=== PATIENT | female | born 1965 | race Caucasian/White ===

== ENCOUNTER → 2016-08-12 | Outpatient (CLI) | payer BC | END | disposition home or self-care (01) | LOC: RAD.S 07:41 | DX: Z12.31 Encounter for screening mammogram for malignant neoplasm of breast (principal) ==

== ENCOUNTER 2016-09-21 07:41 | Day surgery (SDC) | payer BC ==
[~2016-09-21] VITALS: Ht 167.6 cm; Wt 88.3 kg
--- NOTE | 2016-10-05 11:04 | OR ---
ADMIT: 09/21/2016 RM/LOC: [facility] MR#: [id number] [address] [address] [address] Operative/Delivery Room Report SEX: F AGE: 51 : 1965 SURGERY DATE: 09/21/2016 SURGEON: Chino Holliday MD PROCEDURE: Complete colonoscopy with 30 cm polypectomy x1, hepatic flexure polypectomy x2, 70 cm polypectomy x2 and 40 cm polypectomy x1. PREOPERATIVE DIAGNOSIS: Screening colonoscopy. POSTOPERATIVE DIAGNOSIS: Colon polyps. COMPLICATION: None immediate. INDICATION FOR PROCEDURE: She is due for screening colonoscopy. She is not having any symptoms, therefore, I am proceeding with screening colonoscopy. DESCRIPTION OF PROCEDURE: After the patient was informed of the risk, benefits, and alternatives of the procedure, informed consent was obtained. She was taken back to GI lab and placed left lateral decubitus position. Sedation was provided by the [employer]. Once appropriately sedated, rectal exam revealed good sphincter tone without palpable masses or lesions. Video colonoscope was introduced per rectum, passed to the cecum with difficulty. Gentle abdominal pressure was used, image 2/8 does reveal the cecal areas confirmed with ballotment and usual landmarks. Scope was then slowly removed with visualization of the remainder of the colonic mucosa. Prep was adequate. There were no other abnormalities noted other than two polyps approximately 4 mm in size as seen in image 3/8 at the hepatic flexure. These were removed in its entirety with cold biopsy forceps. The scope continued to be withdrawn. There was also two polyps at approximately 70 cm as seen in image 4/8, which were removed inentirety with cold biopsy forceps. The scope continued to be withdrawn and there was one polyp at 40 cm, approximately 4 mm in size, was removed with cold biopsy forceps in its entirety. The scope continued to be withdrawn, at approximately 30 cm as seen in image 05/01, there was an approximately 3 mm ADMIT: 09/21/2016 RM/LOC: [facility] MR#: [id number] [address] [place] [address] Operative/Delivery Room Report SEX: F AGE: 51 : 1965 polyp which was removed in its entirety with cold biopsy forceps. All polyps were significantly less than 1 cm and removed in its entirety with cold biopsy forceps. There were no other abnormalities noted. Once in the rectal vault, the scope was retroflexed, revealing a normal- appearing rectoanal junction as revealed in image 5, 6, and 10/29. Scope was straightened and procedure was terminated, tolerated without any immediate complications, transferred to recovery room in stable condition. PLAN: She will follow up with Dr. Wiley as needed. I recommend repeat colonoscopy pending pathology. Chino Holliday MD/ malick JOB #: [id number] CC: Chino Holliday, Attending Physician Arturo Wiley, Family Physician Arturo Wiley MD
== END 2016-09-21 12:30 | disposition home or self-care (01) ==
LOC: SSS 07:41
PROC: 0DBL8ZX Excision of Transverse Colon, Via Natural or Artificial Opening Endoscopic, Diagnostic (ICD-10-PCS; principal; 2016-09-21)
PROC: 0DBE8ZX Excision of Large Intestine, Via Natural or Artificial Opening Endoscopic, Diagnostic (ICD-10-PCS; principal; 2016-09-21)
DX: Z12.11 Encounter for screening for malignant neoplasm of colon (principal); K63.5 Polyp of colon; I10 Essential (primary) hypertension; Z87.891 Personal history of nicotine dependence; E03.9 Hypothyroidism, unspecified; Z98.890 Other specified postprocedural states